=== PATIENT | male | born 2000 | race Caucasian/White ===

== ENCOUNTER 2025-07-30 22:53 | Emergency (ER) | payer BC, SELFPAY ==
[2025-07-30 22:56] VITALS: BP 141/86; PULSE 74; O2SAT 99; BMI 32.5
[2025-07-30 22:58] VITALS: BP 141/86; O2SAT 98
--- NOTE | 2025-07-30 22:59 | ECG_ITS ---
[facility] Test Date: 2025-07-30 Pat Name: VIGNESH DILLON Department: Room: - Gender: Male [employer]: : 2000 Requested By: [id number] Order Number: [id number] Reading MD: MATTY HERNANDES M.D. Measurements Intervals [place] Rate: 69 P: 30 DC: 130 QRS: 72 QRSD: 104 T: 46 QT: 396 QTc: 416 Interpretive Statements 1100 Sinus rhythm 9110 normal ECG No previous ECG available for comparison Electronically Signed On 07-31-2025 15:04:39 EST by MATTY HERNANDES M.D.
[2025-07-30 23:00] VITALS: BP 137/88; PULSE 72; TEMP 37; O2SAT 100
--- NOTE | 2025-07-30 23:18 | ED_ITS ---
HPI - Chest Pain General Chief Complaint: Chest Pain Stated Complaint: CHEST PAIN Time Seen by Provider: 07/30/25 23:08 Source: patient Mode of arrival: walk-in Limitations: no limitations History of Present Illness HPI narrative: chest pain about 30 minutes ago. Substernal pain. Family states he turned white. No dyspnea or nausea. Still has some pain. Denies history of anxiety Related Data Home Medications ?Medication ?Instructions ?Recorded ?Confirmed No Known Home Medications 07/30/2501/17 Allergies Allergy/AdvReac Type Severity Reaction Status Date / Time Penicillins Allergy Unknown Unknown Verified 07/30/25 22:59 Review of Systems ROS Status of ROS 10 or more systems reviewed and unremark able except as noted in history and below Exam Constitutional Vital Signs, click to edit/add: Last Vital Signs Temp 98.6 F 07/30/25 23:00 Pulse 74 07/31/25 00:00 Resp 26 H 07/31/25 00:00 BP 125/83 07/31/25 00:00 Pulse Ox 97 07/31/25 00:00 O2 Del Method Room Air 07/30/25 22:56 Common normals: no apparent distress, average body habitus, oriented x3, no limitations, healthy appearing, alert and well nourished [facility] Common normals: normocephalic and head/scalp atraumatic Eye Common normals: EOMs intact bilaterally and conjunctivae normal Chest Common normals: inspection of chest normal and palpation of chest normal Respiratory Common normals: normal respiratory effort and no retractions Cardio Common normals: regular rate, regular rhythm, S1 normal heart sound and S2 normal heart sound GI Common normals: Normal to inspection, nondistended, normoactive bowel sounds present, soft to palpation and non-tender Extremity Common normals: normal to inspection and full ROM Neuro Common normals: oriented x3, CN's II-XII intact bilaterally, moves all extremities and no focal motor deficits Psych Appearance: grossly normal Course Vital Signs Vital signs: Vital Signs Pulse Rate 74 07/30/25 22:56 Respiratory Rate 17 07/30/25 22:56 Blood Pressure 141/86 07/30/25 22:56 Pulse Oximetry 99 07/30/25 22:56 Oxygen Delivery Method Room Air 07/30/25 22:56 Temperature 98.6 F 07/30/25 23:00 Pulse Rate 74 07/31/25 00:00 Respiratory Rate 26 H 07/31/25 00:00 Blood Pressure 125/83 07/31/25 00:00 Pulse Oximetry 97 07/31/25 00:00 Oxygen Delivery Method Room Air 07/30/25 22:56 MDM - Chest Pain MDM Narrative Medical decision making narrative: patient presents complaining of substernal chest pain. No past history of the same. Exam neg. EKG normal. cxray normal. CBC, CMP neg. Patient relieved with GI cocktail. Patient then given dose or protonix and discharged home Lab Data Labs: Lab Results 07/30/25 Range/Units 23:10 WBC 7.6 (4.0-11.0) 10^3/uL RBC 5.06 (4.70-6.10) 10^6/uL Hgb 15.5 (14.0-18.0) g/dL Hct 42.9 (42.0-54.0) % MCV 84.8 (80.0-94.0) fL MCH 30.6 (25.9-34.0) pg MCHC 36.1 H (29.9-35.2) g/dL RDW 11.6 (11.0-15.0) % Plt Count 241 (150-450) 10^3/uL MPV 9.4 L (9.5-13.5) fL Neut % (Auto) 47.0 (43.0-75.0) % Lymph % (Auto) 42.9 (20.5-60.0) % [facility] % (Auto) 6.9 (1.7-12.0) % Eos % (Auto) 2.5 (0.9-7.0) % Baso % (Auto) 0.4 (0.2-2.0) % Neut # (Auto) 3.6 (1.4-6.5) 10^3/uL Lymph # (Auto) 3.2 (1.2-3.8) 10^3/uL [facility] # (Auto) 0.5 (0.3-0.8) 10^3/uL Eos # (Auto) 0.2 (0.0-0.7) 10^3/uL Baso # (Auto) 0.0 (0.0-0.1) 10^3/uL Abs Immat Gran (auto) 0.02 (0.00-0.03) 10^3/uL Imm/Tot Granulo (auto) 0.3 (0.0-0.5) % D-Dimer <0.19 (<=0.59) mg/L FEU Sodium 138 (136-145) mmol/L Potassium 3.5 (3.5-5.1) mmol/L Chloride 101 (98-107) mmol/L Carbon Dioxide 24.0 (21.0-32.0) mmol/L Anion Gap 16.5 BUN 12.0 (7.0-18.0) mg/dL Creatinine 0.88 (0.70-1.30) mg/dL Est GFR ( Amer) >60 (>=60 mL/min/1.73m^2) Est GFR (Non-Af Amer) >60 (>=60 mL/min/1.73m^2) BUN/Creatinine Ratio 13.6 Glucose 91 (74-106) mg/dL Calcium 9.1 (8.5-10.1) mg/dL Total Bilirubin 0.7 (0.2-1.0) mg/dL AST 23 (15-37) U/L ALT 40 (16-63) U/L Alkaline Phosphatase 67 (46-116) U/L Troponin I High Sens 13.5 (4.0-76.1) pg/mL Total Protein 7.9 (6.4-8.2) g/dL Albumin 4.6 (3.4-5.0) g/dL Globulin 3.3 g/dL Albumin/Globulin Ratio 1.4 Discharge Plan Discharge Chief Complaint: Chest Pain Clinical Impression: Chest pain due to GERD Patient Disposition: Home, Self-Care Prescriptions / Home Meds: No Action No Known Home Medications Print Language: Nepali Instructions: GERD (Gastroesophageal Reflux Disease) (ED), Noncardiac Chest Pain (ED) Additional Instructions: follow up with your doctor next week Referrals: Physician,Non-Staff, MD [Primary Care Provider] - 1 week
--- NOTE | 2025-07-30 23:20 | XR_ITS ---
The [address] [address] Patient Name: VIGNESH DILLON MRN: [id number] date: 2000 Sex: M Assigned Patient Location: ER Current Patient Location: ED.MAIN Accession/Order Number: [id number] Exam Date: 07/30/2025 23:28 Report Date: 07/30/2025 23:47 At the request of: DAPHNE STONER MD Procedure: XR chest 1V PA CHEST: CLINICAL HISTORY: chest pain COMPARISON: None Unremarkable cardiomediastinal silhouette. No focal opacity. No effusion or pneumothorax. . XR/XR chest 1V IMPRESSION: Negative acute pleural-parenchymal disease. Impression dictated by: Bruno Sawyer M.D. 07/30/2025 11:47 PM Dictation Location: [place] [address] Electronically authenticated by: [id number] Y Date: 07/30/2025 23:47
[2025-07-30 23:25] LABS: Hematocrit 42.9 % (42.0-54.0); Hemoglobin 15.5 g/dL (14.0-18.0); Immature Granulocytes Abs Auto 0.02 10^3/uL (0.00-0.03); Immature Granulocytes Pct Auto 0.3 % (0.0-0.5); Lymphocytes Absolute Auto 3.2 10^3/uL (1.2-3.8); Mean Corpuscular HGB Conc 36.1 g/dL (29.9-35.2); Mean Corpuscular Hemoglobin 30.6 pg (25.9-34.0); Mean Corpuscular Volume 84.8 fL (80.0-94.0); Platelet Count 241 10^3/uL (150-450); Red Blood Count 5.06 10^6/uL (4.70-6.10); White Blood Count 7.6 10^3/uL (4.0-11.0)
[2025-07-30 23:30] VITALS: BP 121/81; PULSE 81; O2SAT 97
[2025-07-30 23:39] LABS: Alanine Aminotransferase 40 U/L (16-63); Albumin Globulin Ratio 1.4; Albumin Level 4.6 g/dL (3.4-5.0); Alkaline Phosphatase 67 U/L (46-116); Anion Gap 16.5; Aspartate Amino Transferase 23 U/L (15-37); Blood Urea Nitrogen 12.0 mg/dL (7.0-18.0); Calcium 9.1 mg/dL (8.5-10.1); Carbon Dioxide 24.0 mmol/L (21.0-32.0); Chloride 101 mmol/L (98-107); Estimated GFR (African America >60 (>=60 mL/min/1.73m^2); Estimated GFR (Non-African Ame >60 (>=60 mL/min/1.73m^2); Globulin 3.3 g/dL; Glucose 91 mg/dL (74-106); Potassium 3.5 mmol/L (3.5-5.1); Sodium 138 mmol/L (136-145); Total Protein 7.9 g/dL (6.4-8.2)
[2025-07-31] VITALS: BP 125/83; PULSE 74; O2SAT 97
[2025-07-31] MEDS: PANTOPRAZOLE SODIUM 40 MG TABLET.DR PO (01:06)
== END 2025-07-31 01:08 | disposition home or self-care (01) ==
PROVIDERS: Emergency Provider Internal Medicine
DX: R07.9 Chest pain, unspecified (principal); K21.9 Gastro-esophageal reflux disease without esophagitis
CPT/HCPCS: 36415; 71045; 80053; 84484; 85025; 85378; 93005; 99285